=== PATIENT | male | born 1980 | race Caucasian/White ===

== ENCOUNTER 2023-08-22 13:52 | Emergency (ER) | payer OTHER ==
[~2023-08-22] VITALS: Ht 182.9 cm; Wt 172.3 kg
[2023-08-22] MEDS: KETOROLAC TROMETH 60MG/2ML VIAL IM ONE (15:22)
[2023-08-22 15:27] LABS: Basophils # (auto) 0.1 10 ^3/uL (0-0.2); Basophils % (auto) 0.6 % (0.0-2.0); Eosinophils # (auto) 0.2 10 ^3/uL (0-0.8); Eosinophils % (auto) 1.2 % (0.0-7.0); Hematocrit 43.5 % (41.0-53.0); Hemoglobin 14.3 g/dL (13.5-17.5); Lymphocytes # (auto) 4.2 10 ^3/uL (0.4-5.4); Lymphocytes % (auto) 27.5 % (10.0-50.0); Mean Corpuscular Hemoglobin 28.1 pg (28.0-32.0); Mean Corpuscular Hgb Conc. 32.9 g/dL (32.0-36.0); Mean Corpuscular Volume 85.5 fL (80.0-100.0); Monocytes # (auto) 1.2 10 ^3/uL (0-1.3); Monocytes % (auto) 7.8 % (0.0-12.0); Neutrophils # (auto) 9.5 10 ^3/uL (1.6-8.6); Neutrophils % (auto) 62.9 % (37.0-80.0); Nucleated Red Blood Cells % 0.2 %; Red Blood Cells 5.09 10^6/uL (4.5-5.90); White Blood Cell 15.2 10^3/uL (4.4-10.8)
[2023-08-22 15:28] LABS: Urine Bacteria None Seen /hpf (None Seen)
[2023-08-22 15:36] VITALS: BP 139/93; PULSE 93; RESP 17; TEMP 98.4; O2SAT 98
[2023-08-22 15:37] LABS: Chloride 105 mmol/L (98-107); Potassium 3.8 mmol/L (3.5-5.1); Sodium 138 mmol/L (136-145)
[2023-08-22 15:38] LABS: Anion Gap 7 (5-15); Calcium 9.6 mg/dL (8.5-10.1); Carbon Dioxide 26 mmol/L (20-30)
[2023-08-22 15:43] LABS: BUN/Creatinine Ratio 8.3 (10.0-20.0); Blood Urea Nitrogen 7 mg/dL (9-23); Glucose 71 mg/dL (74-106)
[2023-08-22 15:44] LABS: Urine Blood Negative /uL (Negative); Urine Clarity Clear (Clear); Urine Color Light-Yellow (Yellow); Urine Protein, UAD Negative (Negative); Urine Specific Gravity 1.013 (1.001-1.035); Urine Urobilinogen Normal (Negative); Urine WBC <1 /hpf (0 - 3)
[2023-08-22] MEDS ORDERED: HYDR-4902 PO (15:53)
== END 2023-08-22 16:01 | disposition home or self-care (01) ==
LOC: ER 13:52 → EDSEX 13:52 → ER 16:01
DX: R10.12 Left upper quadrant pain (principal); K21.9 Gastro-esophageal reflux disease without esophagitis; Z88.5 Allergy status to narcotic agent
CPT/HCPCS: 36415; 74176; 80048; 81001; 85025; 96372; 99285; J1885